=== PATIENT | female | born 1950 | race Caucasian/White ===

== ENCOUNTER 2018-02-14 17:20 | Emergency (ER) | payer MEDICARE, OTHER, SELFPAY ==
[2018-02-14 17:24] VITALS: BMI 43.2
[2018-02-14 17:30] VITALS: BP 145/55; PULSE 74; RESP 15; TEMP 36.1; O2SAT 96
--- NOTE | 2018-02-14 17:32 | DI.RAD.S_ITS ---
PROCEDURE: XR CHEST 1V INDICATIONS: Chest pain TECHNIQUE: One view of the chest was acquired. COMPARISON: None. FINDINGS: Surgical changes and devices: None. Lungs and pleura: Mild prominence of pulmonary interstitium. No focal consolidation or effusion. No pneumothorax. Mediastinum: Mediastinal contours appear normal. Heart size is mildly increased. Bones and chest wall: No suspicious bony lesions. Overlying soft tissues appear unremarkable. IMPRESSION: Mild coronary and prominence of pulmonary interstitium suggesting mild CHF. Recommend clinical correlation. Dictated by: Lalo Borges M.D. on 02/14/2018 at 18:00 Approved by: Lalo Borges M.D. on 02/14/2018 at 18:01
[2018-02-14 18:00] VITALS: BP 125/54; PULSE 73; RESP 15; O2SAT 96
[2018-02-14 18:04] LABS: Add Manual Diff / Slide Review NO; Basophils Percent Auto 0.8 % (0-2); Eosinophils Percent Auto 2.5 % (2-4); Hematocrit 37.4 % (36-46); Hemoglobin 12.8 g/dL (12.0-16.0); Lymphocytes Percent Auto 35.1 % (25-40); Mean Corpuscular HGB Conc 34.2 % (30-36); Mean Corpuscular Hemoglobin 33.1 PG (26-34); Mean Corpuscular Volume 96.8 fL (80-100); Neutrophils Absolute Auto 4600 /uL (3000-5900); Neutrophils Percent Auto 54.6 % (50-75); Platelet Count 192 X10^3/uL (150-400); Red Blood Cell Count 3.87 X10^6/uL (4.0-5.2); Red Cell Distribution Width 14.1 % (11.6-14.8); White Blood Cell Count 8.3 X10^3/uL (4.5-11.0)
[2018-02-14 18:08] LABS: Alanine Aminotransferase 35 IU/L (9-52); Albumin Globulin Ratio 1.4 (1.0-2.8); Alkaline Phosphatase 78 U/L (38-126); Aspartate Aminotransferase 19 IU/L (14-36); BUN Creatinine Ratio 24.3 (6-22); Bilirubin Total 0.6 mg/dL (0.2-1.3); Blood Urea Nitrogen 17 mg/dL (7-17); Calcium 9.3 mg/dL (8.4-10.2); Carbon Dioxide 29 mmol/L (22-32); Chloride 104 mmol/L (98-107); Estimated Glomerular Filt Rate > 60.0 mL/min (>60); Globulin 2.9 g/dL (1.7-4.1); Glucose 131 mg/dL (80-110); HEMOLYSIS 23 (0-50); Lipase 64 U/L (23-300); Potassium 3.9 mmol/L (3.4-5.1); Sodium 142 mmol/L (137-145); Total Protein 6.9 g/dL (6.3-8.2)
[2018-02-14 18:10] LABS: Prothrombin Time 11.1 SECONDS (10.1-12.7)
[2018-02-14 18:13] LABS: PTT Partial Thromboplastin Tim 29 SECONDS (26.4-36.2)
--- NOTE | 2018-02-14 18:21 | ED_ITS ---
HPI - Chest Pain General Chief Complaint: Chest Pain Stated Complaint: CHEST PAIN Time Seen by Provider: 02/14/18 18:00 Source: patient Mode of arrival: ambulatory Limitations: no limitations History of Present Illness HPI narrative: Patient is a 67-year-old female sent her by her chief nuclear medicine technologist and her primary position to rule out pulmonary embolism. She does have a history of PE in 2016 she was on Xarelto for 6 months and is no longer taking anticoagulant. She has been having increasing shortness of breath with exertion for the past few weeks. She has had some chest pressure with this as well. She has been traveling a lot in the car lately and noted bilateral leg swelling which comes and goes intermittently. She denies any orthopnea fever or productive cough. She currently denies any shortness of breath. Related Data Home Medications Medication Instructions Recorded Confirmed aspirin 81 mg tablet,delayed 81 mg PO DAILY 02/14/18 02/14/18 release atorvastatin 40 mg PO BEDTIME 02/14/18 02/14/18 metoprolol succinate 1 tab PO DAILY 02/14/18 02/14/18 zolpidem 5 mg PO HSP PRN 02/14/18 02/14/18 Previous Rx's Medication Instructions Recorded furosemide 20 mg tablet 20 mg PO Q12H #30 tab 02/14/18 Allergies Allergy/AdvReac Type Severity Reaction Status Date / Time bupropion [From WELLBUTRIN] Allergy Intermediate HIVES ON Verified 02/14/18 17: 24 TOP OF HEAD Review of Systems Review of Systems All systems reviewed & are unremarkable except as noted in HPI and below Cardiovascular Denies chest pain, Denies irregular heart rhythm, Denies lightheadedness and Denies orthopnea Respiratory Reports as per HPI Gastrointestinal Gastrointestinal: Denies abdominal pain, Denies change in bowel habits, Denies diarrhea, Denies nausea and Denies vomiting Musculoskeletal Reports as per HPI, Denies back pain, Denies muscle weakness, Denies numbness and Denies tingling Integumentary/Breasts Denies pruritus, Denies erythema, Denies rash and Denies wounds Neurologic Denies numbness and Denies tingling [facility] Medical History Chronic back pain (Chronic 2008) Hearing loss (Chronic 2009) Herpes (Chronic) Sleep apnea (Chronic 2011) Tinnitus (Chronic 2012) Urinary incontinence (Chronic 2009) Fractures (Resolved) Pulmonary embolism (Resolved 2016) Surgical History Anesthesia (Resolved) History of surgery (Resolved ~2008) History of tonsillectomy (Resolved 1952) Status post appendectomy (Resolved 2000) Family History Sister Age: 66 Arthritis Daughter Breast cancer Father Lung cancer Heart valve disease Mother Endocrine cancer Grandmother Heart disease History of coronary artery bypass surgery Grandmother Heart valve disease Social History marital status: education level: master's degree other: walking,mindfulness,quilting,reading seatbelt use: always helmet use: Yes water heater temp set < 120 deg: Yes working smoke detector in home: Yes fire extinguisher in home: Yes carbon monox detector in home: Yes firearms in home: No Smoking Status: Current every day smoker alcohol intake: current during the past year weight has: decreased > 10 lbs well-balanced diet: about half the time daily servings fruits/ve-1 caffeine: Yes eating out: 1-3 times/week Type(s) of exercise: walking frequency: daily Exam Initial Vital Signs Initial Vital Signs: Vital Signs Temperature 97.0 F L 02/14/18 17:30 Pulse Rate 74 02/14/18 17:30 Respiratory Rate 15 02/14/18 17:30 Blood Pressure 145/55 H 02/14/18 17:30 Pulse Oximetry 96 02/14/18 17:30 Const General: cooperative and well developed Nutritional Appearance: well nourished Orientation: alert, awake, oriented x3 and not confused Chest Chest: normal inspection of the chest Resp Effort & Inspection: normal respiratory effort, able to speak in complete sentences, no respiratory distress and no use of accessory muscles Auscultation: clear to auscultation bilaterally, no rales, no rhonchi and no wheezes Cardio Rate: regular rate Rhythm: regular rhythm Heart Sounds: no click, no gallops, no murmurs and no rubs Pulses: normal peripheral pulses Skin General: no rashes or lesions noted, No jaundice and No petechiae Neuro General: alert, oriented x3, gait normal and no focal motor deficits Speech: speech normal Extrem Right upper extremity: normal to inspection Left upper extremity: normal to inspection Right lower extremity: normal to inspection; no edema Left lower extremity: normal to inspection; no edema Course Orders Ordered: ED Orders 02/14/18 17:32 XR chest 1V Stat EKG-12 Lead Stat 02/14/18 17:40 B Type Natriuretic Peptide Stat Complete Blood Count AUTO DIFF Stat Comprehensive Metabolic Panel Stat Lipase Stat Partial Thromboplastin Time Stat Prothrombin Time INR Stat Troponin I Stat 02/14/18 18:20 CT angio chest PE protocol Stat Discontinued Medications Aspirin (Aspirin Chew) 324 mg PO NOW ONE Stop: 02/14/18 17:32 Last Admin: 02/14/18 19:03 Dose: 324 mg Vital Signs - 8 hr 02/14/18 17:30 02/14/18 18:00 02/14/18 19:00 Temperature 97.0 F L Pulse Rate 74 73 61 Respiratory Rate 15 15 19 Blood Pressure Blood Pressure [Right Arm] 145/55 H 125/54 H 118/60 Pulse Oximetry 96 96 98 02/14/18 19:30 02/14/18 20:00 Temperature Pulse Rate 63 71 Respiratory Rate 16 15 Blood Pressure 127/62 H Blood Pressure [Right Arm] 127/62 H Pulse Oximetry 96 MDM - Chest Pain Lab Data Result diagrams: 02/14/18 17:40 02/14/18 17:40 Lab Results 02/14/18 02/14/18 02/14/18 Range/Units 17:40 17:40 17:40 WBC 8.3 (4.5-11.0) X10^3/uL RBC 3.87 L (4.0-5.2) X10^6/uL Hgb 12.8 (12.0-16.0) g/dL Hct 37.4 (36-46) % MCV 96.8 (80-100) fL MCH 33.1 (26-34) PG MCHC 34.2 (30-36) % RDW 14.1 (11.6-14.8) % Plt Count 192 (150-400) X10^3/uL Neut % (Auto) 54.6 (50-75) % Lymph % (Auto) 35.1 (25-40) % [place] % (Auto) 7.0 (3-14) % Eos % (Auto) 2.5 (2-4) % Baso % (Auto) 0.8 (0-2) % Neut # (Auto) 4600 (7109-0770) /uL PT 11.1 (10.1-12.7) SECONDS INR 1.0 (0.9-1.3) APTT 29 (26.4-36.2) SECONDS Sodium (137-145) mmol/L Potassium (3.4-5.1) mmol/L Chloride (98-107) mmol/L Carbon Dioxide (22-32) mmol/L BUN (7-17) mg/dL Creatinine (0.52-1.04) mg/dL Estimated GFR (>60) mL/min BUN/Creatinine Ratio (6-22) Glucose (80-110) mg/dL Calcium (8.4-10.2) mg/dL Total Bilirubin (0.2-1.3) mg/dL AST (14-36) IU/L ALT (9-52) IU/L Alkaline Phosphatase (38-126) U/L Troponin I (0.01-0.034) ng/mL B-Natriuretic Peptide 66.9 (<100) Total Protein (6.3-8.2) g/dL Albumin (3.5-5.0) g/dL Globulin (1.7-4.1) g/dL Albumin/Globulin Ratio (1.0-2.8) Lipase (23-300) U/L 02/14/18 Range/Units 17:40 WBC (4.5-11.0) X10^3/uL RBC (4.0-5.2) X10^6/uL Hgb (12.0-16.0) g/dL Hct (36-46) % MCV (80-100) fL MCH (26-34) PG MCHC (30-36) % RDW (11.6-14.8) % Plt Count (150-400) X10^3/uL Neut % (Auto) (50-75) % Lymph % (Auto) (25-40) % [place] % (Auto) (3-14) % Eos % (Auto) (2-4) % Baso % (Auto) (0-2) % Neut # (Auto) (8922-5612) /uL PT (10.1-12.7) SECONDS INR (0.9-1.3) APTT (26.4-36.2) SECONDS Sodium 142 (137-145) mmol/L Potassium 3.9 (3.4-5.1) mmol/L Chloride 104 (98-107) mmol/L Carbon Dioxide 29 (22-32) mmol/L BUN 17 (7-17) mg/dL Creatinine 0.70 (0.52-1.04) mg/dL Estimated GFR > 60.0 (>60) mL/min BUN/Creatinine Ratio 24.3 H (6-22) Glucose 131 H (80-110) mg/dL Calcium 9.3 (8.4-10.2) mg/dL Total Bilirubin 0.6 (0.2-1.3) mg/dL AST 19 (14-36) IU/L ALT 35 (9-52) IU/L Alkaline Phosphatase 78 (38-126) U/L Troponin I < 0.012 (0.01-0.034) ng/mL B-Natriuretic Peptide (<100) Total Protein 6.9 (6.3-8.2) g/dL Albumin 4.0 (3.5-5.0) g/dL Globulin 2.9 (1.7-4.1) g/dL Albumin/Globulin Ratio 1.4 (1.0-2.8) Lipase 64 (23-300) U/L Imaging Data Chest x-ray: Radiologist's impression: PROCEDURE: XR CHEST 1V INDICATIONS: Chest pain TECHNIQUE: One view of the chest was acquired. COMPARISON: None. FINDINGS: Surgical changes and devices: None. Lungs and pleura: Mild prominence of pulmonary interstitium. No focal consolidation or effusion. No pneumothorax. Mediastinum: Mediastinal contours appear normal. Heart size is mildly increased. Bones and chest wall: No suspicious bony lesions. Overlying soft tissues appear unremarkable. IMPRESSION: Mild coronary and prominence of pulmonary interstitium suggesting mild CHF. Recommend clinical correlation. Dictated by: Lalo Borges M.D. on 02/14/2018 at 18:00 Approved by: Lalo Borges M.D. on 02/14/2018 at 18:01 CT scan - chest: Radiologist's impression: PROCEDURE: CT ANGIO CHEST PE PROTOCOL INDICATIONS: SOB with hx of PE in 2016 TECHNIQUE: After the administration of intravenous contrast, 2 mm thick sections acquired from the pulmonary apices to the posterior costophrenic angles. 3-dimensional maximum intensity projection (MIP) coronal and sagittal reformats were then acquired through the thorax. For radiation dose reduction, the following was used: automated exposure control, adjustment of mA and/or kV according to patient size. COMPARISON: [facility], CR, XR CHEST 1V, 02/14/2018, 17:35. FINDINGS: Image quality: Excellent. Pulmonary arteries: Pulmonary arteries are normal in size, and demonstrate no intraluminal filling defects to suggest central pulmonary embolism. Lungs and pleura: There are C. subpleural nodules in the right lung, one in the upper lobe (series 5 image 17) measuring centimeter, and 2 in the right middle lobe ( series 5 image 31) measuring 3 mm and 4 mm. No pleural effusions or pneumothorax. Central and peripheral airways are patent. Mediastinum: Heart size is mildly increased. There is trace pericardial effusion. No mediastinal or hilar adenopathy. Thoracic aorta is normal in caliber and enhancement. Esophagus is normal in caliber, without hiatal hernia. Bones and chest wall: No suspicious bony lesions. Ribs and thoracic spine appear intact throughout. Thyroid gland is normal. No axillary or supraclavicular adenopathy. Abdomen: There is a 2 cm cyst in liver near the hepatic dome. Visualized upper abdominal solid organs appear normal in the early arterial phase of enhancement. IMPRESSION: 1. No central pulmonary embolism. 2. Mild coronal artery and trace pleural effusion. 3. Small pulmonary nodules in right upper lobe and right middle lobe. Please see enclosed followup recommendation. 4. A 2 cm hepatic cyst. Fleischner Society criteria for SOLID lung nodule followup. Nodule size (mm)Low-risk patientHigh-risk patient?4No follow-up neededFollow-up at 12 mo; if no change, no further follow-up>[id number] CT at 12 mo; if no change, no further follow-up needed.Initial follow-up CT at 6-12 mo, then 18-24 mo if no change. >6-8Initial follow-up CT at 6-12 mo, then 18-24 mo if no change. Initial follow- up CT at 3-6 mo, then 9-12 mo and 24 mo if no change. >8Follow-up CT at 3, 9, 24 mo. Or PET and/or biopsy.Same as for low-risk pts. Dictated by: Lalo Borges M.D. on 02/14/2018 at 19:09 Approved by: Lalo Borges M.D. on 02/14/2018 ECG Data Prior ECG tracings: not available for review Interpretation: Normal sinus rhythm rate 77 left bundle branch block no priors to compare, left bundle branch block noted in medical problems MDM Narrative Medical decision making narrative: Patient has no PE on her CT troponin is negative after prolonged time of chest discomfort and shortness of breath. She was given diuretic by her primary care provider she has not yet started it. I think this will help her breathing and her swelling. She shows no signs of decompensated congestive heart failure at this time. Discussed all results with the patient she feels comfortable going home. Discussed warning signs and when to return to the ED. Discharge Plan Departure Patient Disposition: Home, Self-Care Clinical Impression: Atypical chest pain Discharge Date/Time: 02/14/18 20:00 Interventions: ED Discharge Assessment Last Done: 02/14/18 20:00 Instructions: DI for Atypical Chest Pain Activity Restrictions/Additional Instructions: *You have been diagnosed with atypical chest pain *What to do: Blood work and EKG were negative. Cat scan was negative for pulmonary embolism but did show small nodules which should be followed up by her primary *Continue to take medications as directed -start water pill as previously prescribed and follow up with primary *Follow up with your primary care provider in 2-3 days *Return to ER if you should have any new, worsening or concerning symptoms Prescriptions: No Action aspirin [Adult Aspirin Regimen] 81 mg tablet,delayed release (DR/EC) 81 mg PO DAILY RF: 0 furosemide 20 mg tablet 20 mg PO Q12H Qty: 30 RF: 0 atorvastatin 40 mg tablet 40 mg PO BEDTIME RF: 0 metoprolol succinate 25 mg tablet extended release 24 hr 1 tab PO DAILY RF: 0 zolpidem 5 MG tablet 5 mg PO HSP PRN (Reason: Sleep) RF: 0 Referrals: Johanne Fox MD [Primary Care Provider] -
[2018-02-14 18:29] LABS: B Type Natriuretic Peptide 66.9 (<100)
[2018-02-14 18:30] LABS: Troponin I < 0.012 ng/mL (0.01-0.034)
[2018-02-14 19:00] VITALS: BP 118/60; PULSE 61; RESP 19; O2SAT 98
[2018-02-14] MEDS: ASPIRIN 81 MG TAB 324 MG PO (19:03)
[2018-02-14 19:30] VITALS: BP 127/62; PULSE 63; RESP 16
[2018-02-14 20:00] VITALS: BP 127/62; PULSE 71; RESP 15; O2SAT 96
== END 2018-02-14 20:00 | disposition home or self-care (01) ==
PROVIDERS: Emergency Medicine; Emergency Provider Emergency Medicine; PCP Family Medicine
DX: R07.89 Other chest pain (principal)
CPT/HCPCS: 36591; 71045; 71275; 80053; 83690; 83880; 84484; 85025; 85610; 85730; 93005; 93010; 99283; 99285; Q9967

== ENCOUNTER → 2018-04-24 10:32 | Outpatient (CLI) | payer MEDICARE, OTHER, SELFPAY ==
--- NOTE | 2018-04-24 11:05 | DI.CT.S_ITS ---
PROCEDURE: CT CHEST WO CON INDICATIONS: f/u lung nodules TECHNIQUE: Noncontrast 2.0-2.5 mm thick sections acquired from the pulmonary apices to the posterior costophrenic angles. 7 mm thick coronal and sagittal MIP reformats were then acquired. A low radiation dose technique was utilized. COMPARISON: [facility], CT, CT ANGIO CHEST PE PROTOCOL, 02/14/2018, 18:20. FINDINGS: Image quality: Diagnostic, given the low radiation dose technique. Lungs and pleura: No acute consolidation, pleural effusion or pneumothorax. There is mild upper lobe predominant centrilobular emphysema. Scattered scarring and atelectasis. Unchanged appearance of 2-3 mm multiple right-sided pulmonary nodules seen within the right middle lobe and right lower lobe, image 95 series 3, image 94 series 3. Mediastinum: Heart size is normal. Scant coronary artery calcifications. No pericardial effusion. No mediastinal adenopathy by size criteria. Thoracic aorta and central pulmonary arteries are normal in size. Esophagus is normal in caliber. No hiatal hernia. Bones and chest wall: No suspicious bony lesions. No vertebral body compression fractures. No axillary or supraclavicular adenopathy by size criteria. Thyroid gland negative. Abdomen: Hypodense lesion seen in the dome the liver is unchanged, presumably small cysts or hemangioma IMPRESSION: Unchanged appearance of multiple sub-4 mm right pulmonary nodules since 02/14/18 however it still technically indeterminate in the absence of more remote studies. A followup noncontrast chest CT is recommended in one year ( or could be performed in January of 2019) for definitive assessment Fleischner Society criteria for SOLID lung nodule followup. Nodule size (mm)Low-risk patientHigh-risk patient<6 (single or multiple)No routine followup.Optional CT at 12 months. 6-8 (single or multiple)CT at 6-12 months, then optional CT at 18-24 mo.CT at 6-12 months, then CT at 18-24 months. >8 (single)CT at 3 months, PET-CT, or biopsy. Same as for low-risk pts. >8 (multiple)CT at 3-6 months, then optional CT at 18-24 mo.CT at 3-6 months, then CT at 18-24 months. Fleischner Society criteria for SUB-SOLID lung nodule followup. Solitary pure ground-glass nodules<6 mm (ground glass or part solid)No followup needed. 6 mm or larger (ground glass)CT at 6-12 months to confirm persistence, then CT every 2 years until 5 years.6 mm or larger (part solid)CT at 3-6 months to confirm persistence, then annual CT until 5 years if unchanged and solid component remains <6 mm. Multiple sub-solid nodules<6 mmCT at 3-6 months, then CT consider at 2 & 4 years for high risk patients. [address] at 3-6 months. Subsequent management based on most suspicious lesions. Recommendations do not apply to lung cancer screening, patients with immunosuppression, or patients with known primary cancer. Dictated by: Carlos Guardado M.D. on 04/24/2018 at 11:27 Approved by: Carlos Guardado M.D. on 04/24/2018 at 11:47
== END ==
PROVIDERS: PCP Family Medicine; Visit Provider Family Medicine
DX: R91.8 Other nonspecific abnormal finding of lung field (principal)
CPT/HCPCS: 71250

== ENCOUNTER → 2018-05-22 17:35 | Outpatient (CLI) | payer MEDICARE, OTHER, SELFPAY ==
--- NOTE | 2018-05-22 17:42 | DI.RAD.S_ITS ---
PROCEDURE: XR CHEST 2V INDICATIONS: Cough TECHNIQUE: 2 views of the chest were acquired. COMPARISON: [facility], CT, CT CHEST WO CON, 04/24/2018, 10:33. [facility], CT, CT ANGIO CHEST PE PROTOCOL, 02/14/2018, 18:20. [facility], CR, XR CHEST 1V, 02/14/2018, 17:35. FINDINGS: Surgical changes and devices: None. Lungs and pleura: No pleural effusions or pneumothorax. Interstitial prominence is seen throughout. The lungs are hyperexpanded. Mediastinum: Mediastinal contours are normal. Heart size is mildly to moderately enlarged. Bones and chest wall: No suspicious bony abnormalities. Soft tissues appear unremarkable. IMPRESSION: Cardiomegaly and interstitial prominence. Please correlate with patient presentation, physical examination findings, and laboratory values for congestive heart failure. Dictated by: Marcio Hernandes M.D. on 05/22/2018 at 17:03 Approved by: Marcio Hernandes M.D. on 05/22/2018 at 17:04
== END ==
PROVIDERS: Family Provider Family Medicine; PCP Family Medicine; Visit Provider Family Medicine
DX: R05 Cough (principal); R91.1 Solitary pulmonary nodule; I51.7 Cardiomegaly
CPT/HCPCS: 71046

== ENCOUNTER 2019-02-12 14:30 | Outpatient (RCR) | payer MEDICARE, OTHER, SELFPAY ==
--- NOTE | 2019-02-05 15:15 | PT.OIE ---
Current Diagnoses Pain in unspecified hip (02/05/19) Stiffness of unspecified joint, not elsewhere classified (02/05/19) Lumbago with sciatica, unspecified side (02/05/19) Dorsalgia, unspecified (02/05/19) Muscle weakness (generalized) (02/05/19) Past Medical History (Last Updated 02/17/18 @ 16:27 by Johanne Fox MD) Mixed hyperlipidemia (Chronic 09/21/16) Obstructive sleep apnea syndrome (Chronic 09/21/16) Primary insomnia (Chronic 09/21/16) Left bundle branch block (LBBB) (Chronic 09/18/17) Chronic back pain (Chronic 2008) Hearing loss (Chronic 2009) Herpes (Chronic) Sleep apnea (Chronic 2011) Tinnitus (Chronic 2012) Urinary incontinence (Chronic 2008) Fractures (Resolved) Pulmonary embolism (Resolved 2015) Past Surgical History (Last Updated 04/29/18 @ 13:18 by Shira Reece) Anesthesia (Resolved) History of surgery (Resolved ~2008) History of tonsillectomy (Resolved 1952) Status post appendectomy (Resolved 2000) Provider Visit Care Team Role Provider Type Johanne Fox MD Attending Provider Physician Family Provider Primary Care Provider Specialty: Family Practice Address: [address] [place] [address] Email: [email or web address] Physical Therapy Initial Evaluation PT-OP-A Visit Information Start: 02/05/19 16:55 Freq: Status: Active Protocol: Document 02/05/19 14:30 DCW (Rec: 02/05/19 17:40 DCW [id number]) Out-Patient Physical Therapy Visit Information Visit Information Visit Type Initial Evaluation Visit Start Time 14:30 Visit Stop Time 15:15 Total Visit Minutes 45 Visit Number 1 Number of DIRECTOR TRIAL Visits 0 Evaluation Information Evaluation Date 02/05/19 PT-OP-B Current Condition Start: 02/05/19 16:55 Freq: Status: Active Protocol: Document 02/05/19 14:30 DCW (Rec: 02/05/19 17:40 DCW [id number]) Current Condition History of Current Condition Onset Date 40 year history Current Complaints Low back pain, bilateral radicular symptoms History of Current Condition Pt is a 68 year old female presenting with a long- standing history of low back pain. Pt reports she began having back pain in her 20s, and it will just occasionally cycle between feeling better and then getting worse again. Pt notes that she typically will see a chiropractor regularly, and when her pain gets really bad, she'll go to a physical therapist. Notes she was last seen by a PT 6-7 years ago, and she still does some of the lumbar stretches she was shown at that time. Pt notes that she will get numbness down her legs, and feels it is worst in her little toes bilaterally. Pt also notes some cervical tightness, resulting in numbness in her pinkies. Pt notes her back pain limits her participation in any long- distance anything, and she must take breaks when performing any cooking or cleaning. Pt is also limited walking her dog. Treatment Goals Patient/Caregiver Goals It's coming up on summer, and I want to be able to go camping and get out and move around. I've been wanting to lose weight, but I just can't do anything long enough to burn calories. Prior Functional Status Baseline Function- ADL's Independent Baseline Function- Mobility Independent Current Functional Impairments (Reported) Functional Limitations- ADL's Pt must take a break fpc through vacuuming her 360 square foot apartment, has to sit and rest when doing dishes , and if she does laundry, the next day, I'm done for. Functional Limitations- Mobility/Gait Pt limited in the distance she is able to walk with her dog Functional Limitations- Recreation/ Pt unable to go camping due to Hobbies back pain PT-OP-C Subjective Start: 02/05/19 16:55 Freq: Status: Active Protocol: Document 02/05/19 14:30 DCW (Rec: 02/05/19 17:40 DCW [id number]) OP-PT Pain Assessment Pain Assessment Grid Paper Pain Assessment Grid Completed Yes Location Bilateral Lower Back Intensity 6 Scale Used Numeric (1 - 10) Description Burning Chronic Shooting Radiating Location Down back of legs bilaterally to 5th toes Pain Aggravating Factors ADL's Activity Standing PT-OP-F Manual Assessment Start: 02/05/19 16:55 Freq: Status: Active Protocol: Document 02/05/19 14:30 DCW (Rec: 02/05/19 17:40 DCW [id number]) Manual Assessments Soft Tissue Assessment Soft Tissue Mobility Assessment Severe Tone bilateral piriformis, psoas. Moderate tone: bilateral ITB, QL. Joint Mobility Assessment Joint Mobility Assessment Tenderness to palpation 3/4: Wincing and withdraw L SI PT-OP-K Range of Motion Start: 02/05/19 16:55 Freq: Status: Active Protocol: Document 02/05/19 14:30 DCW (Rec: 02/05/19 17:40 DCW [id number]) Lumbar Spine Range of Motion Lumbar Spine Active Degrees Testing Position Standing Flexion 70 Extension 15 Comments Lateral flexion measured cm from floor to fingertips. Left : 60 cm; Right: 54 cm PT-OP-L Special Tests Start: 02/05/19 16:55 Freq: Status: Active Protocol: Document 02/05/19 14:30 DCW (Rec: 02/05/19 17:40 DCW [id number]) Special Tests Lumbar Spine Special Tests Vertical Spine Loading Test Results Negative Straight Leg Raise Test Results Positive bilaterally Comments pain in posterior hip Slump Test Results Positive R Prone Instability Test Test Results Negative Manual Traction Test Results Pain relief Compression Test Results Negative Hip Special Tests Justus Test Results Positive bilaterally Piriformis Test Results Positive bilaterally GISELLE Test Results Positive bilaterally Comments pain in posterior hip PT-OP-M Strength Start: 02/05/19 16:55 Freq: Status: Active Protocol: Document 02/05/19 14:30 DCW (Rec: 02/05/19 17:40 DCW [id number]) Hip Strength Hip Manual Muscle Testing Right Flexion (L2) 4- Good- Extension (S1) 3+ Fair+ Abduction 4- Good- Adduction 4- Good- External Rotation 4+ Good+ Internal Rotation 4+ Good+ Left Flexion (L2) 4+ Good+ Extension (S1) 4 Good Abduction 4+ Good+ Adduction 4 Good External Rotation 4+ Good+ Internal Rotation 4+ Good+ Knee Strength Knee Manual Muscle Testing Right Flexion (S2) 4 Good Extension (L3) 4 Good Left Flexion (S2) 4+ Good+ Extension (L3) 4+ Good+ PT-OP-Q Treatments Start: 02/05/19 16:55 Freq: Status: Active Protocol: Document 02/05/19 14:30 DCW (Rec: 02/05/19 17:40 DCW [id number]) Therapeutic Exercises Supine Exercises Piriformis Stretch Supine Exercise Name Figure-4, Nubu-[id number]-Ezhshlqr Shoulder Side bilateral Sitting Exercises Piriformis Stretch Sitting Exercise Name Seated Figure-4 Side right PT-OP-T Assessment and Plan Start: 02/05/19 16:55 Freq: Status: Active Protocol: Document 02/05/19 14:30 DCW (Rec: 02/05/19 17:40 DCW [id number]) Physical Therapy Assessment Rehab Potential Rehabilitation Potential Good Evaluation Complexity Number of Personal Factors/Comorbidities 1-2 Number of Body Systems Impaired 3 Clinical Presentation at Evaluation Stable Impairments Impairments Activity Tolerance Functional Activities Pain ROM Soft Tissue Mobility Strength Goals Four Impairment Restricted left lateral flexion Fpc Goal (LTG) Left lateral flexion to 54 cm finger-tip to ground measurement LTG Duration 04/07/19 Three Impairment Pt unable to do laundry without increased pain the following day Split Leather Department Supervisor Goal (LTG) Pt to do laundry with no increased pain the next day LTG Duration 04/07/19 Two Impairment Pt only able to vacuum half of her apartment at one time due to back pain Split Leather Department Supervisor Goal (LTG) Pt to be able to vacuum entire apartment without requiring a break LTG Duration 04/07/19 One Impairment Pt does not have an appropriate home exercise program Short Term Goal (STG) Pt to be independent and compliant with and appropriate HEP STG Duration 03/07/19 Assessment Summary Assessment Pt presents with significant tightness in her hip musculature, most noteably in her piriformis/external rotators, hip flexors, hamstrings, and adductors. Pt has gone through PT in the past, and has continued with many of her HEP exercises ever since, which has actually allowed her to maintain excellent lumbar flexion, and she has minimal paraspinal and QL tightness. Pt does display weakness in her bilateral lower extremities, as well as her core musculature, which if strengthened, will likely assist in stabilizing her spine and reducing low back pain. Pt also demonstrates some signs of neural entrapment, with complaints of toe numbness, shooting pain, and positive slump test. Pt shows limited mobility with left lateral flexion, and may also benefit from flexibility and lumbar mobilization. Physical Therapy Plan Frequency and Duration Frequency of Treatment 2x/Week Duration of Treatment 10 weeks Plan of Care Start Date 02/05/19 Plan of Care End Date 04/16/19 Therapeutic Interventions Therapeutic Interventions Aquatic Therapy Home Exercise Program Joint Mobilizations Manual Therapy Neuromuscular Re-education Patient/Caregiver Education Self-Care/Home Management Soft Tissue Mobilization Taping Therapeutic Activities Therapeutic Exercises Modalities Cold Pack/Ice Massage Electric Stimulation Hot Packs Iontophoresis Ultrasound
--- NOTE | 2019-02-05 15:15 | PT.OPPOC ---
Current Diagnoses Pain in unspecified hip (02/05/19) Stiffness of unspecified joint, not elsewhere classified (02/05/19) Lumbago with sciatica, unspecified side (02/05/19) Dorsalgia, unspecified (02/05/19) Muscle weakness (generalized) (02/05/19) Provider Visit Care Team Role Provider Type Johanne Fox MD Attending Provider Physician Family Provider Primary Care Provider Specialty: Family Practice Address: [address] [place] [address], [facility] Email: [email or web address] Plan Of Care PT-OP-T Assessment and Plan Start: 02/05/19 16:55 Freq: Status: Active Protocol: Document 02/05/19 14:30 DCW (Rec: 02/05/19 17:40 DCW [id number]) Physical Therapy Assessment Rehab Potential Rehabilitation Potential Good Evaluation Complexity Number of Personal Factors/Comorbidities 1-2 Number of Body Systems Impaired 3 Clinical Presentation at Evaluation Stable Impairments Impairments Activity Tolerance Functional Activities Pain ROM Soft Tissue Mobility Strength Goals Four Impairment Restricted left lateral flexion Mcfp Goal (LTG) Left lateral flexion to 54 cm finger-tip to ground measurement LTG Duration 04/07/19 Three Impairment Pt unable to do laundry without increased pain the following day Field Contact Person Goal (LTG) Pt to do laundry with no increased pain the next day LTG Duration 04/07/19 Two Impairment Pt only able to vacuum half of her apartment at one time due to back pain Field Contact Person Goal (LTG) Pt to be able to vacuum entire apartment without requiring a break LTG Duration 04/07/19 One Impairment Pt does not have an appropriate home exercise program Short Term Goal (STG) Pt to be independent and compliant with and appropriate HEP STG Duration 03/07/19 Assessment Summary Assessment Pt presents with significant tightness in her hip musculature, most noteably in her piriformis/external rotators, hip flexors, hamstrings, and adductors. Pt has gone through PT in the past, and has continued with many of her HEP exercises ever since, which has actually allowed her to maintain excellent lumbar flexion, and she has minimal paraspinal and QL tightness. Pt does display weakness in her bilateral lower extremities, as well as her core musculature, which if strengthened, will likely assist in stabilizing her spine and reducing low back pain. Pt also demonstrates some signs of neural entrapment, with complaints of toe numbness, shooting pain, and positive slump test. Pt shows limited mobility with left lateral flexion, and may also benefit from flexibility and lumbar mobilization. Physical Therapy Plan Frequency and Duration Frequency of Treatment 2x/Week Duration of Treatment 10 weeks Plan of Care Start Date 02/05/19 Plan of Care End Date 04/16/19 Therapeutic Interventions Therapeutic Interventions Aquatic Therapy Home Exercise Program Joint Mobilizations Manual Therapy Neuromuscular Re-education Patient/Caregiver Education Self-Care/Home Management Soft Tissue Mobilization Taping Therapeutic Activities Therapeutic Exercises Modalities Cold Pack/Ice Massage Electric Stimulation Hot Packs Iontophoresis Ultrasound Plan of Care Dates Plan of Care Start Date 02/05/19 Plan of Care End Date 04/16/19 Please Sign and Return: I have reviewed this Plan of Care and certify that the skilled therapy services above are required to meet the patient?s needs. Physician Signature Date Printed Name and Credentials Clinical Instructor Signature Printed Name and Credentials
--- NOTE | 2019-02-09 12:42 | PT.OTN ---
Current Diagnoses Pain in unspecified hip (02/09/19) Stiffness of unspecified joint, not elsewhere classified (02/09/19) Lumbago with sciatica, unspecified side (02/09/19) Dorsalgia, unspecified (02/09/19) Muscle weakness (generalized) (02/09/19) Physical Therapy Treatment Note PT-OP-A Visit Information Start: 02/05/19 16:55 Freq: Status: Active Protocol: Document 02/09/19 12:00 DCW (Rec: 02/09/19 12:42 DCW [id number]) Out-Patient Physical Therapy Visit Information Visit Information Visit Type Treatment Note Visit Start Time 12:00 Visit Stop Time 12:45 Total Visit Minutes 45 Visit Number 2 Number of PUBLIC ADDRESS SYSTEM MECHANIC Visits 0 Evaluation Information Evaluation Date 02/05/19 PT-OP-B Current Condition Start: 02/05/19 16:55 Freq: Status: Active Protocol: Document 02/05/19 14:30 DCW (Rec: 02/05/19 17:40 DCW [id number]) Current Condition History of Current Condition Onset Date 40 year history Current Complaints Low back pain, bilateral radicular symptoms History of Current Condition Pt is a 68 year old female presenting with a long- standing history of low back pain. Pt reports she began having back pain in her 20s, and it will just occasionally cycle between feeling better and then getting worse again. Pt notes that she htypically will see a chiropractor regularly, and when her pain gets really bad, she'll go to a physical therapist. Notes she was last seen by a PT 6-7 years ago, and she still does some of the lumbar stretches she was shown at that time. Pt notes that she will get numbness down her legs, and feels it is worst in her little toes bilaterally. Pt also notes some cervical tightness, resulting in numbness in her pinkies. Pt notes her back pain limits her participation in any long- distance anything, and she must take breaks when performing any cooking or cleaning. Pt is also limited walking her dog. Treatment Goals Patient/Caregiver Goals It's coming up on summer, and I want to be able to go gamping and get out and move around. I've been wanting to lose weight, but I just can't do anything long enough to burn calories. Prior Functional Status Baseline Function- ADL's Independent Baseline Function- Mobility Independent Current Functional Impairments (Reported) Functional Limitations- ADL's Pt must take a break skilled nursing through vacuuming her 360 square foot apartment, has to sit and rest when doing dishes , and if she does laundry, the next day, I'm done for. Functional Limitations- Mobility/Gait Pt limited in the distance she is able to walk with her dog Functional Limitations- Recreation/ Pt unable to go camping due to Hobbies back pain PT-OP-C Subjective Start: 02/05/19 16:55 Freq: Status: Active Protocol: Document 02/09/19 12:00 DCW (Rec: 02/09/19 12:42 DCW [id number]) OP-PT Subjective Patient Comments Patient Comments Pt reports that her home stretching are hurting and causing a significant increase in pain along her low back a posterior hips. PT-OP-F Manual Assessment Start: 02/05/19 16:55 Freq: Status: Active Protocol: Document 02/05/19 14:30 DCW (Rec: 02/05/19 17:40 DCW [id number]) Manual Assessments Soft Tissue Assessment Soft Tissue Mobility Assessment Severe Tone bilateral piriformis, psoas. Moderate tone: bilateral ITB, QL. Joint Mobility Assessment Joint Mobility Assessment Tenderness to palpation 3/4: Wincing and withdraw L SI PT-OP-K Range of Motion Start: 02/05/19 16:55 Freq: Status: Active Protocol: Document 02/05/19 14:30 DCW (Rec: 02/05/19 17:40 DCW [id number]) Lumbar Spine Range of Motion Lumbar Spine Active Degrees Testing Position Standing Flexion 70 Extension 15 Comments Lateral flexion measured cm from floor to fingertips. Left : 60 cm; Right: 54 cm PT-OP-L Special Tests Start: 02/05/19 16:55 Freq: Status: Active Protocol: Document 02/05/19 14:30 DCW (Rec: 02/05/19 17:40 DCW [id number]) Special Tests Lumbar Spine Special Tests Vertical Spine Loading Test Results Negative Straight Leg Raise Test Results Positive bilaterally Comments pain in posterior hip Slump Test Results Positive R Prone Instability Test Test Results Negative Manual Traction Test Results Pain relief Compression Test Results Negative Hip Special Tests Justus Test Results Positive bilaterally Piriformis Test Results Positive bilaterally GISELLE Test Results Positive bilaterally Comments pain in posterior hip PT-OP-M Strength Start: 02/05/19 16:55 Freq: Status: Active Protocol: Document 02/05/19 14:30 DCW (Rec: 02/05/19 17:40 DCW [id number]) Hip Strength Hip Manual Muscle Testing Right Flexion (L2) 4- Good- Extension (S1) 3+ Fair+ Abduction 4- Good- Adduction 4- Good- External Rotation 4+ Good+ Internal Rotation 4+ Good+ Left Flexion (L2) 4+ Good+ Extension (S1) 4 Good Abduction 4+ Good+ Adduction 4 Good External Rotation 4+ Good+ Internal Rotation 4+ Good+ Knee Strength Knee Manual Muscle Testing Right Flexion (S2) 4 Good Extension (L3) 4 Good Left Flexion (S2) 4+ Good+ Extension (L3) 4+ Good+ PT-OP-Q Treatments Start: 02/05/19 16:55 Freq: Status: Active Protocol: Document 02/09/19 12:00 DCW (Rec: 02/09/19 12:42 DCW [id number]) Cardio Equipment Recumbent Elliptical (SmartSynch) Duration (Minutes) 5 Resistance 3 Seat Position 9 Therapeutic Exercises Supine Exercises PPT /c Marching Supine Exercise Name PPT /c Marching PPT Supine Exercise Name PPT /c TrA Bridging Supine Exercise Name Bridging Piriformis Stretch Supine Exercise Name Figure-4 Side bilateral Comments Manual Sidelying Exercises Clamshell Sidelying Exercise Name Clamshell Side bilateral Manual Therapy Treatment Soft Tissue Mobilization QL Body Location B QL Mobilization Type Strumming Sustained Pressure Intensity/Depth Moderate Body Position Sidelying Piriformis Body Location B Piriformis Mobilization Type Strumming Sustained Pressure Intensity/Depth Deep Body Position Sidelying Joint Mobilizations Lumbar PA mobs Joint Lumbar Direction P->A Grade III Body Position Sidelying PT-OP-T Assessment and Plan Start: 02/05/19 16:55 Freq: Status: Active Protocol: Document 02/09/19 12:00 DCW (Rec: 02/09/19 12:42 DCW [id number]) Physical Therapy Assessment Goals Four Impairment Restricted left lateral flexion Group Home Goal (LTG) Left lateral flexion to 54 cm finger-tip to ground measurement LTG Duration 04/07/19 Three Impairment Pt unable to do laundry without increased pain the following day Group Home Goal (LTG) Pt to do laundry with no increased pain the next day LTG Duration 04/07/19 Two Impairment Pt only able to vacuum half of her apartment at one time due to back pain Hair Dresser Goal (LTG) Pt to be able to vacuum entire apartment without requiring a break LTG Duration 04/07/19 One Impairment Pt does not have an appropriate home exercise program Short Term Goal (STG) Pt to be independent and compliant with and appropriate HEP STG Duration 03/07/19 Assessment Summary Assessment Pt instructed to ease off of her home stretching, and stop completely is it continues to cause pain. Pt tolerated TherEx and STM well today, had no complaints, and felt manual stretching actually felt good. Physical Therapy Plan Frequency and Duration Frequency of Treatment 2x/Week Duration of Treatment 10 weeks Plan of Care Start Date 02/05/19 Plan of Care End Date 04/16/19 Therapeutic Interventions Therapeutic Interventions Aquatic Therapy Home Exercise Program Joint Mobilizations Manual Therapy Neuromuscular Re-education Patient/Caregiver Education Self-Care/Home Management Soft Tissue Mobilization Taping Therapeutic Activities Therapeutic Exercises Modalities Cold Pack/Ice Massage Electric Stimulation Hot Packs Iontophoresis Ultrasound Next Visit Focus/Plan Next Note Type Treatment Note Next Visit Plan core and LE Strengthening, STM
--- NOTE | 2019-02-12 15:09 | PT.OTN ---
Current Diagnoses Pain in unspecified hip (02/12/19) Stiffness of unspecified joint, not elsewhere classified (02/12/19) Lumbago with sciatica, unspecified side (02/12/19) Dorsalgia, unspecified (02/12/19) Muscle weakness (generalized) (02/12/19) Physical Therapy Treatment Note PT-OP-A Visit Information Start: 02/05/19 16:55 Freq: Status: Active Protocol: Document 02/12/19 14:30 DCW (Rec: 02/12/19 15:09 DCW [id number]) Out-Patient Physical Therapy Visit Information Visit Information Visit Type Treatment Note Visit Start Time 14:30 Visit Stop Time 15:15 Total Visit Minutes 45 Visit Number 3 Number of METAL GAUGE MAKER Visits 0 Evaluation Information Evaluation Date 02/05/19 PT-OP-B Current Condition Start: 02/05/19 16:55 Freq: Status: Active Protocol: Document 02/05/19 14:30 DCW (Rec: 02/05/19 17:40 DCW [id number]) Current Condition History of Current Condition Onset Date 40 year history Current Complaints Low back pain, bilateral radicular symptoms History of Current Condition Pt is a 68 year old female presenting with a long- standing history of low back pain. Pt reports she began having back pain in her 20s, and it will just occasionally cycle between feeling better and then getting worse again. Pt notes that she htypically will see a chiropractor regularly, and when her pain gets really bad, she'll go to a physical therapist. Notes she was last seen by a PT 6-7 years ago, and she still does some of the lumbar stretches she was shown at that time. Pt notes that she will get numbness down her legs, and feels it is worst in her little toes bilaterally. Pt also notes some cervical tightness, resulting in numbness in her pinkies. Pt notes her back pain limits her participation in any long- distance anything, and she must take breaks when performing any cooking or cleaning. Pt is also limited walking her dog. Treatment Goals Patient/Caregiver Goals It's coming up on summer, and I want to be able to go gamping and get out and move around. I've been wanting to lose weight, but I just can't do anything long enough to burn calories. Prior Functional Status Baseline Function- ADL's Independent Baseline Function- Mobility Independent Current Functional Impairments (Reported) Functional Limitations- ADL's Pt must take a break chcf through vacuuming her 360 square foot apartment, has to sit and rest when doing dishes , and if she does laundry, the next day, I'm done for. Functional Limitations- Mobility/Gait Pt limited in the distance she is able to walk with her dog Functional Limitations- Recreation/ Pt unable to go camping due to Hobbies back pain PT-OP-C Subjective Start: 02/05/19 16:55 Freq: Status: Active Protocol: Document 02/12/19 14:30 DCW (Rec: 02/12/19 15:09 DCW [id number]) OP-PT Subjective Patient Comments Patient Comments I've been real busy today, so you might need to take it easy on me. PT-OP-F Manual Assessment Start: 02/05/19 16:55 Freq: Status: Active Protocol: Document 02/05/19 14:30 DCW (Rec: 02/05/19 17:40 DCW [id number]) Manual Assessments Soft Tissue Assessment Soft Tissue Mobility Assessment Severe Tone bilateral piriformis, psoas. Moderate tone: bilateral ITB, QL. Joint Mobility Assessment Joint Mobility Assessment Tenderness to palpation 3/4: Wincing and withdraw L SI PT-OP-K Range of Motion Start: 02/05/19 16:55 Freq: Status: Active Protocol: Document 02/05/19 14:30 DCW (Rec: 02/05/19 17:40 DCW [id number]) Lumbar Spine Range of Motion Lumbar Spine Active Degrees Testing Position Standing Flexion 70 Extension 15 Comments Lateral flexion measured cm from floor to fingertips. Left : 60 cm; Right: 54 cm PT-OP-L Special Tests Start: 02/05/19 16:55 Freq: Status: Active Protocol: Document 02/05/19 14:30 DCW (Rec: 02/05/19 17:40 DCW [id number]) Special Tests Lumbar Spine Special Tests Vertical Spine Loading Test Results Negative Straight Leg Raise Test Results Positive bilaterally Comments pain in posterior hip Slump Test Results Positive R Prone Instability Test Test Results Negative Manual Traction Test Results Pain relief Compression Test Results Negative Hip Special Tests Justus Test Results Positive bilaterally Piriformis Test Results Positive bilaterally GISELLE Test Results Positive bilaterally Comments pain in posterior hip PT-OP-M Strength Start: 02/05/19 16:55 Freq: Status: Active Protocol: Document 02/05/19 14:30 DCW (Rec: 02/05/19 17:40 DCW [id number]) Hip Strength Hip Manual Muscle Testing Right Flexion (L2) 4- Good- Extension (S1) 3+ Fair+ Abduction 4- Good- Adduction 4- Good- External Rotation 4+ Good+ Internal Rotation 4+ Good+ Left Flexion (L2) 4+ Good+ Extension (S1) 4 Good Abduction 4+ Good+ Adduction 4 Good External Rotation 4+ Good+ Internal Rotation 4+ Good+ Knee Strength Knee Manual Muscle Testing Right Flexion (S2) 4 Good Extension (L3) 4 Good Left Flexion (S2) 4+ Good+ Extension (L3) 4+ Good+ PT-OP-Q Treatments Start: 02/05/19 16:55 Freq: Status: Active Protocol: Document 02/12/19 14:30 DCW (Rec: 02/12/19 15:09 DCW [id number]) Cardio Equipment Recumbent Elliptical ([place]) Duration (Minutes) 5 Resistance 4 Seat Position 9 Gym Equipment Shuttle Recovery Unilateral Squats Resistance 37# Shuttle Recovery Platform Stable Bilateral Squats Resistance 75# Shuttle Recovery Platform Stable Therapeutic Exercises Supine Exercises Bridging Supine Exercise Name Bridging Piriformis Stretch Supine Exercise Name Figure-4 Side bilateral Comments Manual Other Exercises Resisted Ambulation Other Exercise Name Forward, Backward, Side- stepping Side bilateral Resistance yellow Equipment Used T-band Manual Therapy Treatment Soft Tissue Mobilization QL Body Location B QL Mobilization Type Strumming Sustained Pressure Intensity/Depth Moderate Body Position Sidelying Piriformis Body Location B Piriformis Mobilization Type Strumming Sustained Pressure Intensity/Depth Deep Body Position Sidelying Joint Mobilizations Lumbar PA mobs Joint Lumbar Direction P->A Grade III Body Position Sidelying PT-OP-T Assessment and Plan Start: 02/05/19 16:55 Freq: Status: Active Protocol: Document 02/12/19 14:30 DCW (Rec: 02/12/19 15:09 DCW [id number]) Physical Therapy Assessment Impairments Impairments Activity Tolerance Functional Activities Pain ROM Soft Tissue Mobility Strength Goals Four Impairment Restricted left lateral flexion Data Entry Specialist Goal (LTG) Left lateral flexion to 54 cm finger-tip to ground measurement LTG Duration 04/07/19 Three Impairment Pt unable to do laundry without increased pain the following day Snf Goal (LTG) Pt to do laundry with no increased pain the next day LTG Duration 04/07/19 Two Impairment Pt only able to vacuum half of her apartment at one time due to back pain Snf Goal (LTG) Pt to be able to vacuum entire apartment without requiring a break LTG Duration 04/07/19 One Impairment Pt does not have an appropriate home exercise program Short Term Goal (STG) Pt to be independent and compliant with and appropriate HEP STG Duration 03/07/19 Assessment Summary Assessment Pt tolerated treatment very well today, had no complaints of difficulty with new TherEx. Physical Therapy Plan Frequency and Duration Frequency of Treatment 2x/Week Duration of Treatment 10 weeks Plan of Care Start Date 02/05/19 Plan of Care End Date 04/16/19 Therapeutic Interventions Therapeutic Interventions Aquatic Therapy Home Exercise Program Joint Mobilizations Manual Therapy Neuromuscular Re-education Patient/Caregiver Education Self-Care/Home Management Soft Tissue Mobilization Taping Therapeutic Activities Therapeutic Exercises Modalities Cold Pack/Ice Massage Electric Stimulation Hot Packs Iontophoresis Ultrasound Hold Physical Therapy Reason For Hold Pt [place], will resume therapy upon return. Next Visit Focus/Plan Next Note Type Treatment Note Next Visit Plan core and LE Strengthening, STM
--- NOTE | 2019-03-31 17:10 | PT.OTN ---
Current Diagnoses Pain in unspecified hip (02/12/19) Stiffness of unspecified joint, not elsewhere classified (02/12/19) Lumbago with sciatica, unspecified side (02/12/19) Dorsalgia, unspecified (02/12/19) Muscle weakness (generalized) (02/12/19) Physical Therapy Treatment Note PT-OP-A Visit Information Start: 02/05/19 16:55 Freq: Status: Active Protocol: Document 03/31/19 17:09 (Rec: 03/31/19 17:10 [id number]) Out-Patient Physical Therapy Visit Information Visit Information Visit Type Other Visit Note Pt now show today. Called pt who stated that she injured her ankle recently and has difficulty ambulating. She requested to cancel her next appt as well.
--- NOTE | 2019-04-15 14:25 | PT.OPDS ---
Current Diagnoses Pain in unspecified hip (02/12/19) Stiffness of unspecified joint, not elsewhere classified (02/12/19) Lumbago with sciatica, unspecified side (02/12/19) Dorsalgia, unspecified (02/12/19) Muscle weakness (generalized) (02/12/19) Provider Visit Care Team Role Provider Type Johanen Fox MD Attending Provider Physician Family Provider Primary Care Provider Specialty: [facility] Address: [address] [place] [address], [facility] [place], [address] Email: [email or web address] Visit Number Visit Number 3 Discharge Summary PT-OP-B Current Condition Start: 02/05/19 16:55 Freq: Status: Active Protocol: Document 02/05/19 14:30 DCW (Rec: 02/05/19 17:40 DCW [id number]) Current Condition History of Current Condition Onset Date 40 year history Current Complaints Low back pain, bilateral radicular symptoms History of Current Condition Pt is a 68 year old female presenting with a long- standing history of low back pain. Pt reports she began having back pain in her 20s, and it will just occasionally cycle between feeling better and then getting worse again. Pt notes that she htypically will see a chiropractor regularly, and when her pain gets really bad, she'll go to a physical therapist. Notes she was last seen by a PT 6-7 years ago, and she still does some of the lumbar stretches she was shown at that time. Pt notes that she will get numbness down her legs, and feels it is worst in her little toes bilaterally. Pt also notes some cervical tightness, resulting in numbness in her pinkies. Pt notes her back pain limits her participation in any long- distance anything, and she must take breaks when performing any cooking or cleaning. Pt is also limited walking her dog. Treatment Goals Patient/Caregiver Goals It's coming up on summer, and I want to be able to go gamping and get out and move around. I've been wanting to lose weight, but I just can't do anything long enough to burn calories. Prior Functional Status Baseline Function- ADL's Independent Baseline Function- Mobility Independent Current Functional Impairments (Reported) Functional Limitations- ADL's Pt must take a break residential through vacuuming her 360 square foot apartment, has to sit and rest when doing dishes , and if she does laundry, the next day, I'm done for. Functional Limitations- Mobility/Gait Pt limited in the distance she is able to walk with her dog Functional Limitations- Recreation/ Pt unable to go camping due to Hobbies back pain PT-OP-C Subjective Start: 02/05/19 16:55 Freq: Status: Active Protocol: Document 02/12/19 14:30 DCW (Rec: 02/12/19 15:09 DCW [id number]) OP-PT Subjective Patient Comments Patient Comments I've been real busy today, so you might need to take it easy on me. PT-OP-F Manual Assessment Start: 02/05/19 16:55 Freq: Status: Active Protocol: Document 02/05/19 14:30 DCW (Rec: 02/05/19 17:40 DCW [id number]) Manual Assessments Soft Tissue Assessment Soft Tissue Mobility Assessment Severe Tone bilateral piriformis, psoas. Moderate tone: bilateral ITB, QL. Joint Mobility Assessment Joint Mobility Assessment Tenderness to palpation 3/4: Wincing and withdraw L SI PT-OP-K Range of Motion Start: 02/05/19 16:55 Freq: Status: Active Protocol: Document 02/05/19 14:30 DCW (Rec: 02/05/19 17:40 DCW [id number]) Lumbar Spine Range of Motion Lumbar Spine Active Degrees Testing Position Standing Flexion 70 Extension 15 Comments Lateral flexion measured cm from floor to fingertips. Left : 60 cm; Right: 54 cm PT-OP-L Special Tests Start: 02/05/19 16:55 Freq: Status: Active Protocol: Document 02/05/19 14:30 DCW (Rec: 02/05/19 17:40 DCW [id number]) Special Tests Lumbar Spine Special Tests Vertical Spine Loading Test Results Negative Straight Leg Raise Test Results Positive bilaterally Comments pain in posterior hip Slump Test Results Positive R Prone Instability Test Test Results Negative Manual Traction Test Results Pain relief Compression Test Results Negative Hip Special Tests Justus Test Results Positive bilaterally Piriformis Test Results Positive bilaterally GISELLE Test Results Positive bilaterally Comments pain in posterior hip PT-OP-M Strength Start: 02/05/19 16:55 Freq: Status: Active Protocol: Document 02/05/19 14:30 DCW (Rec: 02/05/19 17:40 DCW [id number]) Hip Strength Hip Manual Muscle Testing Right Flexion (L2) 4- Good- Extension (S1) 3+ Fair+ Abduction 4- Good- Adduction 4- Good- External Rotation 4+ Good+ Internal Rotation 4+ Good+ Left Flexion (L2) 4+ Good+ Extension (S1) 4 Good Abduction 4+ Good+ Adduction 4 Good External Rotation 4+ Good+ Internal Rotation 4+ Good+ Knee Strength Knee Manual Muscle Testing Right Flexion (S2) 4 Good Extension (L3) 4 Good Left Flexion (S2) 4+ Good+ Extension (L3) 4+ Good+ PT-OP-T Assessment and Plan Start: 02/05/19 16:55 Freq: Status: Active Protocol: Document 04/15/19 14:23 DCW (Rec: 04/15/19 14:25 DCW [id number]) Physical Therapy Assessment Impairments Impairments Activity Tolerance Functional Activities Pain ROM Soft Tissue Mobility Strength Goals Four Impairment Restricted left lateral flexion Waste Disposal Leakage Tester Goal (LTG) Left lateral flexion to 54 cm finger-tip to ground measurement LTG Duration 04/07/19 Three Impairment Pt unable to do laundry without increased pain the following day Longterm Goal (LTG) Pt to do laundry with no increased pain the next day LTG Duration 04/07/19 Two Impairment Pt only able to vacuum half of her apartment at one time due to back pain Waste Disposal Leakage Tester Goal (LTG) Pt to be able to vacuum entire apartment without requiring a break LTG Duration 04/07/19 One Impairment Pt does not have an appropriate home exercise program Short Term Goal (STG) Pt to be independent and compliant with and appropriate HEP STG Duration 03/07/19 Assessment Summary Assessment Pt phoned the clinic on , canceled all remaining appointments, stating she has injured a ligament in her foot , and will return when she gets a new referral from her PCP. Physical Therapy Plan Frequency and Duration Frequency of Treatment 2x/Week Duration of Treatment 10 weeks Plan of Care Start Date 02/05/19 Plan of Care End Date 04/16/19 Therapeutic Interventions Therapeutic Interventions Aquatic Therapy Home Exercise Program Joint Mobilizations Manual Therapy Neuromuscular Re-education Patient/Caregiver Education Self-Care/Home Management Soft Tissue Mobilization Taping Therapeutic Activities Therapeutic Exercises Modalities Cold Pack/Ice Massage Electric Stimulation Hot Packs Iontophoresis Ultrasound Discharge Physical Therapy Discharge Reasons Change in Medical Status Next Visit Focus/Plan Next Note Type Discharge Summary
== END 2019-04-17 10:08 | disposition home or self-care (01) ==
LOC: PHYS 14:30
PROVIDERS: Family Provider Family Medicine; PCP Family Medicine; Visit Provider Family Medicine
DX: M54.9 Dorsalgia, unspecified (principal); M25.559 Pain in unspecified hip; M54.40 Lumbago with sciatica, unspecified side; M62.81 Muscle weakness (generalized); M25.60 Stiffness of unspecified joint, not elsewhere classified
CPT/HCPCS: 97110; 97140; 97161